=== PATIENT | female | born 1965 | race Caucasian/White ===

== ENCOUNTER → 2017-06-11 | Outpatient (CLI) | payer BC ==
[~2017-06-11] MED LIST: BARIUM SULFATE 0.1% 450 ML SUSP PO ONE; IOHEXOL 300 MG/ML 75 ML VIAL. IV ONE
--- NOTE | 2017-06-11 10:56 | RAD ---
CT abdomen/pelvis with contrast 06/11/2017 at 0950 hours Indication: Anemia and rash Comparison: None available Technique: Multiple axial CT images of the abdomen and pelvis were obtained after the administration of intravenous contrast. Coronal and sagittal reformats are provided. 73 mL of Omnipaque 300 was administered intravenously. Negative oral contrast was administered (Volumen). Findings: Visualized lung bases are normal. Heart size is within normal limits. Liver is normal in appearance without evidence for a focal mass lesion. There is an 18 mm hypodense lesion in the spleen. A borderline left periaortic lymph node measures 9.5 mm by short axis. Adrenal glands are normal in appearance. Pancreas and gallbladder are normal in appearance. Abdominal aorta is normal in course and caliber. There are no pathologically enlarged abdominal or pelvic lymph nodes. There is no free intraperitoneal air. No free fluid within the abdomen or pelvis. The kidneys enhance symmetrically. However, the right kidney is atrophic compared to the left with parenchymal thinning. A simple appearing 15 mm renal cyst is identified in the midpole the right kidney. There is a 3 mm parenchymal calcification in the superior pole the right kidney. There is no hydronephrosis. No suspicious renal masses are identified. The right kidney measures approximately 6.5 cm in length whereas the left kidney measures approximately 12.3 cm in length. Small and large bowel are normal in caliber. No dilated bowel loops are identified. No pericolonic contour changes are identified. Terminal ileum appears normal. Normal appendix is visualized. No suspicious osseous abnormality is identified. There is a 4.0 x 3.9 cm left adnexal cystic lesion. Impression: 1. No definite abnormality is identified involving the bowel, specifically normal-appearing terminal ileum. 2. There is a 18 mm hypodense lesion in the spleen. Findings most likely represent a hemangioma or lymphangioma, however 3-6 month follow-up CT abdomen is recommended to ensure stability. 3. There is asymmetric atrophy of the right kidney which may be secondary to prior infectious/inflammatory or vascular insult. 4. There is a 4.0 x 3.9 cm cystic left adnexal lesion. Further evaluation with pelvic ultrasound may be of benefit. PQRS Compliance Statement: One or more of the following individualized dose reduction techniques were utilized for this examination: 1. Automated exposure control 2. Adjustment of the mA and/or kV according to patient size 3. Use of iterative reconstruction technique
== END | disposition home or self-care (01) ==
LOC: CT 08:00
PROVIDERS: ATTEND Internal Medicine Gastroenterology
DX: D64.9 Anemia, unspecified (principal); N28.1 Cyst of kidney, acquired; N26.1 Atrophy of kidney (terminal); R21 Rash and other nonspecific skin eruption; D73.89 Other diseases of spleen; N28.89 Other specified disorders of kidney and ureter
CPT/HCPCS: 74177; Q9967